=== PATIENT | male | born 1940 | race Caucasian/White ===

== ENCOUNTER 2019-03-19 21:56 | Emergency (ER) | payer MEDICARE ==
[2019-03-19] MEDS ORDERED: DIAZEPAM 5 MG/ML 2 ML INJ IVP STA (22:26)
[2019-03-19] MEDS ORDERED: KETOROLAC 30 MG/ML 1 ML VIAL IVP STA (22:26)
--- NOTE | 2019-03-19 22:38 | ED ---
Upper Extremity HPI - General Chief Complaint: Extremity Injury, Upper Stated Complaint: Shoulder injury Time Seen by Provider: 03/19/19 22:19 Source: patient, family Mode of arrival: ambulatory Limitations: no limitations - History of Present Illness Initial Comments: 78-year-old male patient presents to the emergency department today for evaluation of right shoulder injury. Patient states he is on his barn when he tripped and fell landing on the right shoulder. Patient states that he had immediate onset of pain and difficulty with movement. States he is having some mild tingling sensation to the right hand. He denies hitting his head or losing consciousness during the fall. Denies any neck or back pain. Denies any other injuries. Patient denies any headache, chest pain, shortness of breath, dizziness, weakness, abdominal pain, nausea, vomiting, or difficulties with bowel movements or urination. - Related Data Home Medications Medication Instructions Recorded Confirmed Gabapentin [Neurontin] 600 mg PO TID 06/09/14 03/19/19 Acetaminophen Tab [Tylenol] 1,000 mg PO HS 03/19/19 03/19/19 Aspirin [[place] Aspirin EC] 81 mg PO HS 03/19/19 03/19/19 Baclofen [Lioresal] 20 mg PO TID 03/19/19 03/19/19 Calcium Carbonate [Calcium] 600 mg PO DAILY 03/19/19 03/19/19 Cholecalciferol (Vitamin D3) 2,000 unit PO DAILY 03/19/19 03/19/19 [Vitamin D3] Dorzolamide-Timol 2.23%/0.68% 1 drop BOTH EYES BID 03/19/19 03/19/19 [Cosopt] Erythromycin Ophth Oint [Romycin 1 applic LEFT EYE TID 03/19/19 03/19/19 Ophth Oint] INSULIN LISPRO (humaLOG) [humaLOG] See Protocol SQ DAILY 03/19/19 03/19/19 Krill Oil 500 mg PO HS 03/19/19 03/19/19 Latanoprost [Xalatan 0.005%] 1 drop BOTH EYES HS 03/19/19 03/19/19 Magnesium 200 mg PO DAILY 03/19/19 03/19/19 Multivit-Min36/Iron/Folic Acid 1 tab PO DAILY 03/19/19 03/19/19 [Geritol Complete Tablet] Psyllium Husk [Metamucil] 0.4 mg PO DAILY 03/19/19 03/19/19 diphenhydrAMINE HCL [Benadryl] 25 mg PO HS 03/19/19 03/19/19 metFORMIN HCL [Glucophage] 500 mg PO BID 03/19/19 03/19/19 traMADol HCL [Ultram] 50 mg PO BID 03/19/19 03/19/19 Allergies Allergy/AdvReac Type Severity Reaction Status Date / Time No Known Allergies Allergy Verified 03/19/19 23:15 Review of Systems ROS Statement: Those systems with pertinent positive or pertinent negative responses have been documented in the HPI. ROS Other: All systems not noted in ROS Statement are negative. Past Medical History Past Medical History: Diabetes Mellitus History of Any Multi-Drug Resistant Organisms: None Reported Past Surgical History: Adenoidectomy, Back Surgery, Hernia Repair, Tonsillectomy Additional Past Surgical History / Comment(s): gastric bypass, pin in left index finger, Past Psychological History: No Psychological Hx Reported Smoking Status: Former smoker Past Alcohol Use History: None Reported Past Drug Use History: None Reported General Exam Limitations: no limitations General appearance: alert, in no apparent distress, other (Physical well- developed, well-nourished elderly male patient in no acute distress. Vital signs upon presentation are temperature 98.7F, pulse 98, respirations 20, blood pressure 136/87, pulse ox 97% on room air.) Eye exam: Present: normal appearance, PERRL, EOMI. Absent: scleral icterus, conjunctival injection, periorbital swelling ENT exam: Present: normal exam, normal oropharynx, mucous membranes moist Neck exam: Present: normal inspection, full ROM, other (Nontender, no step-off, no deformity to firm midline palpation of the posterior cervical spine. Full range of motion without pain or limitation.). Absent: tenderness, meningismus, lymphadenopathy Respiratory exam: Present: normal lung sounds bilaterally. Absent: respiratory distress, wheezes, rales, rhonchi, stridor Cardiovascular Exam: Present: regular rate, normal rhythm, normal heart sounds. Absent: systolic murmur, diastolic murmur, rubs, gallop, clicks Extremities exam: Present: full ROM, tenderness (Right shoulder over the right acromioclavicular joint), normal capillary refill, other (There is obvious deformity noted to the right shoulder. No humeral tenderness. No elbow tenderness. Skin to the upper extremity is pink, warm, dry. Cap refills less than 3 seconds. Radial pulses 2+ and equal bilaterally.). Absent: normal inspection, pedal edema, joint swelling, calf tenderness Back exam: Present: normal inspection, other (Nontender, no step-off, no deformity to firm midline palpation of the thoracic and lumbar vertebrae. Full range of motion without pain or limitation.). Absent: vertebral tenderness Neurological exam: Present: alert, oriented X3, CN II-XII intact Psychiatric exam: Present: normal affect, normal mood Skin exam: Present: warm, dry, intact, normal color. Absent: rash Course Vital Signs 03/19/19 03/19/19 22:03 23:36 Temperature 98.7 F 98.3 F Pulse Rate 98 89 Respiratory 20 17 Rate Blood Pressure 136/87 103/66 O2 Sat by Pulse 97 96 Oximetry Medical Decision Making - Medical Decision Making 78-year-old male patient presented to the emergency department today for evaluation after experiencing a fall causing a right shoulder injury. Physical examination did reveal soft tissue swelling over the acromioclavicular joint. Neurovascular status intact to the right upper extremity. X-ray was obtained and showed no acute fractures or dislocations. Given patient's amount of pain there is concern for soft tissue injury possibly rotator cuff. Patient was placed in a sling. He is instructed to perform gentle range of motion exercises daily. He is instructed to follow-up with his primary care physician and media relations specialist for further evaluation as soon as possible. He does have tramadol at home, he is urged to take this if necessary. Return parameters were discussed in detail. He verbalizes understanding and agrees this plan. - Radiology Data Radiology results: report reviewed, image reviewed 3 views of the right shoulder obtained. Report was reviewed in its entirety. Impression by Dr. Verma shows no acute findings. Disposition Clinical Impression: Right shoulder injury Disposition: HOME SELF-CARE Condition: Good Instructions (If sedation given, give patient instructions): Rotator Cuff Injury (ED) Additional Instructions: Follow-up with media relations specialist for recheck as soon as possible. Perform gentle range of motion to the right shoulder 2-3 times daily. Take Tylenol and Motrin for pain control. Take home tramadol as directed. Return to the emergency department immediately for any new, worsening, or concerning symptoms. Is patient prescribed a controlled substance at d/c from ED?: No Referrals: David Patricio MD [Primary Care Provider] - 1-2 days Time of Disposition: 23:28
--- NOTE | 2019-03-19 22:54 | XR ---
EXAM: XR Right Shoulder Complete, 2 or More Views CLINICAL HISTORY: Pain TECHNIQUE: Two or more views of the right shoulder. COMPARISON: No relevant prior studies available. FINDINGS: Bones/joints: No acute fracture or traumatic malalignment. Degenerative changes noted about the glenohumeral and acromioclavicular joint. Soft tissues: Unremarkable. IMPRESSION: No acute findings.
[2019-03-19 23:38] VITALS: BP 103/66; PULSE 89; RESP 17; TEMP 98.3
== END 2019-03-19 23:37 | disposition home or self-care (01) ==
LOC: EC 21:56
DX: S49.91XA Unspecified injury of right shoulder and upper arm, initial encounter (principal); E11.9 Type 2 diabetes mellitus without complications; Z87.891 Personal history of nicotine dependence; Z79.82 Long term (current) use of aspirin; Z79.4 Long term (current) use of insulin; Z79.891 Long term (current) use of opiate analgesic; Z79.899 Other long term (current) drug therapy; W01.0XXA Fall on same level from slipping, tripping and stumbling without subsequent striking against object, initial encounter; Y92.71 Barn as the place of occurrence of the external cause
CPT/HCPCS: 73030; 99283; 96374; J1885

== ENCOUNTER 2019-08-24 18:11 | Emergency (ER) | payer MEDICARE ==
[2019-08-24 18:21] VITALS: BP 163/80; PULSE 79; RESP 18; TEMP 97.6
[2019-08-24] MEDS ORDERED: DIPH,PERTUS(ACELL)TETVAC-LF 0.5 ML VIAL IM ONE (18:24)
[2019-08-24] MEDS ORDERED: WATER FOR IRRIG, STERILE 1,000 ML BTL IRRIGATION ONE (18:24)
[2019-08-24] MEDS ORDERED: ceFAZolin 1,000 MG VIAL (IM USE) IM STA (18:24)
[2019-08-24] MEDS ORDERED: LIDOCAINE 1% INJ 10MG/ML (20 ML MDV) SQ STA (18:27)
--- NOTE | 2019-08-24 18:46 | ED ---
General Adult HPI - General Chief complaint: Wound/Laceration Stated complaint: rt hand lac Time Seen by Provider: 08/24/19 18:21 Source: patient, RN notes reviewed, old records reviewed Mode of arrival: EMS Limitations: no limitations - History of Present Illness Initial comments: 78-year-old male patient presents the chief complaint of administration of laceration to right hand. Patient reports that he is using a table saw today and he accidentally brushed the side of his pinky with the saw. Tetanus needs to be updated. Denies any other injury. Denies any other complaints. Systemic: Pt denies fatigue, fever/chills, rash. Pt denies weakness, night sweats, weight loss. Neuro: Pt denies headache, visual disturbances, syncope or pre-syncope. HEENT: Pt denies ocular discharge or irritation, otalgia, rhinorrhea, pharyngitis or notable lymphadenopathy. Cardiopulmonary: Pt denies chest pain, SOB, heart palpitations, dyspnea on exertion. Abdominal/GI: Pt denies abdominal pain, n/v/d. : Pt denies dysuria, burning w/ urination, frequency/urgency. Denies new onset urinary or bowel incontinence. MSK: Pt denies myalgia, loss of strength or function in extremities. Neuro: Pt denies new onset weakness, paresthesias. - Related Data Home Medications Medication Instructions Recorded Confirmed Gabapentin [Neurontin] 600 mg PO TID 06/09/14 03/19/19 Acetaminophen Tab [Tylenol] 1,000 mg PO HS 03/19/19 03/19/19 Aspirin [[place] Aspirin EC] 81 mg PO HS 03/19/19 03/19/19 Baclofen [Lioresal] 20 mg PO TID 03/19/19 03/19/19 Calcium Carbonate [Calcium] 600 mg PO DAILY 03/19/19 03/19/19 Cholecalciferol (Vitamin D3) 2,000 unit PO DAILY 03/19/19 03/19/19 [Vitamin D3] Dorzolamide-Timol 2.23%/0.68% 1 drop BOTH EYES BID 03/19/19 03/19/19 [Cosopt] Erythromycin Ophth Oint [Romycin 1 applic LEFT EYE TID 03/19/19 03/19/19 Ophth Oint] INSULIN LISPRO (humaLOG) [humaLOG] See Protocol SQ DAILY 03/19/19 03/19/19 Krill Oil 500 mg PO HS 03/19/19 03/19/19 Latanoprost [Xalatan 0.005%] 1 drop BOTH EYES HS 03/19/19 03/19/19 Magnesium 200 mg PO DAILY 03/19/19 03/19/19 Multivit-Min36/Iron/Folic Acid 1 tab PO DAILY 03/19/19 03/19/19 [Geritol Complete Tablet] Psyllium Husk [Metamucil] 0.4 mg PO DAILY 03/19/19 03/19/19 diphenhydrAMINE HCL [Benadryl] 25 mg PO HS 03/19/19 03/19/19 metFORMIN HCL [Glucophage] 500 mg PO BID 03/19/19 03/19/19 traMADol HCL [Ultram] 50 mg PO BID 03/19/19 03/19/19 Previous Rx's Medication Instructions Recorded Cephalexin [Keflex] 500 mg PO Q6HR 3 Days #12 cap 08/24/19 Allergies Allergy/AdvReac Type Severity Reaction Status Date / Time No Known Allergies Allergy Verified 08/24/19 18:21 Review of Systems ROS Statement: Those systems with pertinent positive or pertinent negative responses have been documented in the HPI. ROS Other: All systems not noted in ROS Statement are negative. Past Medical History Past Medical History: Diabetes Mellitus History of Any Multi-Drug Resistant Organisms: None Reported Past Surgical History: Adenoidectomy, Back Surgery, Hernia Repair, Tonsillectomy Additional Past Surgical History / Comment(s): gastric bypass, pin in left index finger, Past Psychological History: No Psychological Hx Reported Smoking Status: Former smoker Past Alcohol Use History: Occasional Past Drug Use History: None Reported General Exam - General Exam Comments Initial Comments: Constitutional: NAD, AOX3, Pt has pleasant affect. HEENT: NC/AT, trachea midline, neck supple, no lymphadenopathy. Posterior pharynx non erythematous, without exudates. External ears appear normal, without discharge. Mucous membranes moist. Eyes PERRLA, EOM intact. There is no scleral icterus. No pallor noted. Cardiopulmonary: RRR, no murmurs, rubs or gallops, no JVD noted. Lungs CTAB in anterior and posterior weber. No peripheral edema. Abdominal exam: Abdomen soft and non-distended. Abdomen non-tender to palpation in all 4 quadrants. Bowel sounds active in LLQ. No hepatosplenomegaly. No ecchymosis Neuro: CN II-XII grossly intact. No nuchal rigidity. No raccon eyes, no brandt sign, no hemotympanum. No cervical spinal tenderness. MSK: 4 cm stellate laceration proximal to the fifth MCP joint. This was vigorously irrigated and approximated with 9 simple Sutures. Patient has a 2 cm laceration that is just proximal to the other laceration also along the fifth metacarpal. Vigorously irrigated and approximated with 3 simple interrupted sutures. Patient has full active range of motion digit. Sensation is intact. No posterior calf tenderness bilaterally, homans sign negative bilaterally. Posterior tibialis and radial pulse +2 bilaterally. Sensation intact in upper and lower extremities. Full active ROM in upper and lower extremities, 5/5 stregnth. Limitations: no limitations Course Vital Signs 08/24/19 18:19 Temperature 97.6 F Pulse Rate 79 Respiratory 18 Rate Blood Pressure 163/80 O2 Sat by Pulse 97 Oximetry Procedures - Laceration Laceration #1 Consent Obtained: verbal consent Indication: laceration Site: hand Size (cm): 4 Description: stellate Depth: simple, single layer Anesthetic Used: lidocaine 1% Anesthesia Technique: local infiltration Amount (mls): 3 Pre-repair: wound explored, irrigated extensively, deep structures intact Type of Sutures: nylon Size of Sutures: 5-0 Number of Sutures: 9 Technique: simple, interrupted Patient Tolerated Procedure: well, no complications Laceration #2 Consent Obtained: verbal consent Indication: laceration Site: hand Size (cm): 2 Description: linear Depth: simple, single layer Anesthetic Used: lidocaine 1% Anesthesia Technique: local infiltration Amount (mls): 3 Pre-repair: wound explored, irrigated extensively, deep structures intact Type of Sutures: nylon Size of Sutures: 5-0 Number of Sutures: 3 Technique: simple, interrupted Complications: pain Patient Tolerated Procedure: well, no complications Medical Decision Making - Medical Decision Making 78-year-old male patient presents the chief complaint of administration of laceration to right hand. Patient reports that he is using a table saw today and he accidentally brushed the side of his pinky with the saw. Tetanus needs to be updated. Denies any other injury. Denies any other complaints. Patient vital signs stable, afebrile. Physical exam displayed 2 simple lacerations of the right hand. Patient has a 4 cm stellate laceration proximal to the fifth MCP joint. This was vigorously irrigated and approximated with 9 simple Sutures. Patient has a 2 cm laceration that is just proximal to the other laceration also along the fifth metacarpal. Vigorously irrigated and approximated with 3 simple interrupted sutures. Patient has full active range of motion digit. Sensation is intact. Patient discharged with prophylactic Keflex, primary care provider follow-up. Patient given orthopedic follow-up if any range of motion difficulties develop. Return to ER physician worsens. Case discussed with Dr. Tucker. Disposition Clinical Impression: Laceration Disposition: HOME SELF-CARE Condition: Stable Instructions (If sedation given, give patient instructions): Laceration (ED), Finger Laceration (ED) Additional Instructions: Follow up with care provider tomorrow. Follow up with orthopedic consult if any range of motion difficulties develop. Please return for suture removal: Hand: 7-10 days Face: 5 days Chest/abdomen: 12-14 days Extremities: 7-10 days Scalp: 7 days Eyebrow: 5-7 days Foot/sole: 12-14 days Please monitor for signs and symptoms of infection including: redness, warmth, drainage, discharge. Please return to ED if these signs or symptoms occur, new signs or symptoms develop or if condition worsens in anyway. Prescriptions: Cephalexin [Keflex] 500 mg PO Q6HR 3 Days #12 cap Is patient prescribed a controlled substance at d/c from ED?: No Referrals: David Patricio MD [Primary Care Provider] - 1-2 days Giuliano Beckham MD [STAFF PHYSICIAN] - 1-2 days
--- NOTE | 2019-08-24 19:00 | XR ---
EXAMINATION TYPE: XR hand complete RT DATE OF EXAM: 08/24/2019 COMPARISON: NONE HISTORY: Laceration from a table saw TECHNIQUE: 3 views FINDINGS: I see no fracture nor dislocation. The joint spaces of the fingers are fairly well-maintain ed. There is narrowing and spurring at the first carpometacarpal joint. There is some destructive nereyda nge involving the trapezium. There is no sign of a foreign body. IMPRESSION: No acute bony abnormality.
[2019-08-24] MEDS ORDERED: CEPHALEXIN 500MG STARTER PACK 4 CAP BTL PO STA (19:53)
== END 2019-08-24 20:16 | disposition home or self-care (01) ==
LOC: EC 18:11
DX: S61.411A Laceration without foreign body of right hand, initial encounter (principal); S61.216A Laceration without foreign body of right little finger without damage to nail, initial encounter; Z23 Encounter for immunization; E11.9 Type 2 diabetes mellitus without complications; Z79.84 Long term (current) use of oral hypoglycemic drugs; Z79.82 Long term (current) use of aspirin; Z79.899 Other long term (current) drug therapy; Z87.891 Personal history of nicotine dependence; W26.8XXA Contact with other sharp object(s), not elsewhere classified, initial encounter; Y93.89 Activity, other specified
CPT/HCPCS: 73130; 90715; 99284; 96372; 90471; 12002; J0690; J2001

== ENCOUNTER → 2019-09-24 | Outpatient (CLI) | payer MEDICARE ==
[2019-09-24 08:13] LABS: African American GFR (CKD) >90 (>60 ml/min/1.73 sqM); Blood Urea Nitrogen 21 mg/dL (9-20); Non-African American GFR(CKD) >90 (>60 ml/min/1.73 sqM)
--- NOTE | 2019-09-24 09:23 | CT ---
EXAMINATION TYPE: CT brain wo/w con DATE OF EXAM: 09/24/2019 COMPARISON: None HISTORY: Loss of balance CT DLP: 1922mGycm CONTRAST: CT scan of the head is performed without and with IV Contrast, patient injected with 100 mL of Isovue 300. Unenhanced followed by contrast enhanced CT of the brain is submitted for evaluation. The ventricles basal cisterns and sulci overlying the cervical convexities demonstrate mild enlargement compatible w ith generalized atrophic change. Mild periventricular white matter ischemic demyelination is identifi ed. There is no evidence for intracranial hemorrhage or extra-axial collection. No mass effects are identified. Visualized bony calvarium is intact. Contrast is administered and no enhancing lesions are detected. No pathologic enhancement is identified. If symptoms persist consider MRI. IMPRESSION: 1. No evidence for enhancing lesion or acute intracranial process. 2. Generalized atrophic and chronic small vessel ischemic change.
== END | disposition home or self-care (01) ==
LOC: RADCTMAIN 07:37
PROVIDERS: ATTEND Pediatrics
DX: G31.9 Degenerative disease of nervous system, unspecified (principal); R90.89 Other abnormal findings on diagnostic imaging of central nervous system
CPT/HCPCS: 82565; 84520; 70470; 36415; Q9967

== ENCOUNTER → 2020-07-26 | Outpatient (CLI) | payer MEDICARE | END | disposition home or self-care (01) | LOC: LABWHC1 13:05 | PROVIDERS: ATTEND Pediatrics | DX: Z20.828 Contact with and (suspected) exposure to other viral communicable diseases (principal) | CPT/HCPCS: U0003; C9803 ==